=== PATIENT | female | born 1965 | race Caucasian/White ===

== ENCOUNTER 2017-08-12 20:17 | Emergency (ER) | payer MEDICAID ==
[~2017-08-12] VITALS: Ht 152.4 cm; Wt 63.5 kg
[2017-08-12 20:17] VITALS: BP_SYST 163
[2017-08-12 21:34] VITALS: BP_SYST 154
== END 2017-08-12 21:34 | disposition home or self-care (01) ==
LOC: SED 20:17
DX: R09.81 Nasal congestion (principal); I10 Essential (primary) hypertension; Z90.49 Acquired absence of other specified parts of digestive tract; Z86.2 Personal history of diseases of the blood and blood-forming organs and certain disorders involving the immune mechanism
CPT/HCPCS: 99283